=== PATIENT | female | born 1960 | race Hispanic/Latino ===

== ENCOUNTER 2017-11-29 18:15 | Emergency (ER) | payer MEDICAID ==
[2017-11-29 18:26] VITALS: BP 168/95; PULSE 64; RESP 18; TEMP 97.6; O2SAT 99
--- NOTE | 2017-11-29 18:57 | ED PDOC ---
HPI: Back Time Seen by Provider: 11/29/17 18:28 Chief Complaint (Nursing): Back Pain Chief Complaint (Provider): Back Pain History Per: Patient History/Exam Limitations: no limitations Onset/Duration Of Symptoms: Hrs (prior to arrival) Additional Complaint(s): Breana Leavitt is a 57 y/o female with history of TMJ, occipital neuralgia, cervical neuralgia, fibromyalgia, and lyme disease who presents with her usual neck, upper back and lower back pain. Patient reports she has not been taking any medication because nothing helps the pain. She states she has been seeing multiple specialists including pain management but has not been taking any pain medication. Patient reports nausea and vomiting which she states is normal when she gets this pain. PMD: None provided Past Medical History Reviewed: Historical Data, Nursing Documentation, Vital Signs Vital Signs: Last Vital Signs Temp 97.6 F 11/29/17 18:19 Pulse 64 11/29/17 18:19 Resp 18 11/29/17 18:19 BP 168/95 H 11/29/17 18:19 Pulse Ox 99 11/29/17 18:19 - Medical History PMH: Fibromyalgia Other PMH: Occipital neuralgia, cervical neuralgia, TMJ, Lyme Disease - Surgical History Surgical History: No Surg Hx - Family History Family History: States: Unknown Family Hx - Home Medications Home Medications: Ambulatory Orders Medication Instructions Recorded Lidocaine 5% [Lidoderm] 1 ea TD DAILY PRN #5 patch 11/29/17 - Allergies Allergies/Adverse Reactions: Allergies Allergy/AdvReac Type Severity Reaction Status Date / Time amoxicillin AdvReac PAIN Verified 11/29/17 18:38 Review of Systems Constitutional: Negative for: Fever Gastrointestinal: Positive for: Nausea, Vomiting Musculoskeletal: Positive for: Neck Pain, Back Pain (upper and lower) Physical Exam - Reviewed Nursing Documentation Reviewed: Yes Vital Signs Reviewed: Yes - Physical Exam Appears: Positive for: In Acute Distress (Painful distress, but distractable) Head Exam: Positive for: ATRAUMATIC, NORMOCEPHALIC Skin: Positive for: Normal Color, Warm, DRY Eye Exam: Positive for: EOMI, Normal appearance, PERRL Cardiovascular/Chest: Positive for: Regular Rate, Rhythm. Negative for: Murmur Respiratory: Positive for: Normal Breath Sounds. Negative for: Respiratory Distress Gastrointestinal/Abdominal: Positive for: Normal Exam, Soft. Negative for: Tenderness Back: Positive for: Normal Inspection, Other (tenderness to palpation entire back) Extremity: Positive for: Normal ROM. Negative for: Pedal Edema, Deformity Neurologic/Psych: Positive for: Alert, Oriented. Negative for: Motor/Sensory Deficits - Laboratory Results Result Diagrams: 11/29/17 19:02 11/29/17 19:02 - ECG O2 Sat by Pulse Oximetry: 99 (RA) Pulse Ox Interpretation: Normal Medical Decision Making Medical Decision Making: Time: 18:40 Initial Impression: Chronic pain --When asked who her PMD was patient was evasive and claimed that they were " far away" Initial Plan: --CMP --Drug screen --Urine dipstick --Flexeril 10 mg PO --Toradol 30 mg IM --Zofran 4 mg PO --Urinalysis ----- Scribe Attestation: Documented by Trey Briones, acting as a scribe for Constance Mitchell MD. Provider Scribe Attestation: All medical record entries made by the Scribe were at my direction and personally dictated by me. I have reviewed the chart and agree that the record accurately reflects my personal performance of the history, physical exam, medical decision making, and the department course for this patient. I have also personally directed, reviewed, and agree with the discharge instructions and disposition. Disposition - Clinical Impression Clinical Impression: Chronic pain - Disposition Referrals: [facility] [Outside] - 11/30/17 Disposition: Transfer of Care Disposition Time: 19:00 Condition: STABLE Additional Instructions: Return if not better in 3 days. Prescriptions: Lidocaine 5% [Lidoderm] 1 ea TD DAILY PRN #5 patch PRN Reason: Pain, Moderate (4-7) Instructions: Chronic Pain (DC) Patient Signed Over To: Jeevan Mcdaniels
--- NOTE | 2017-11-29 19:06 | ED PDOC ---
- Laboratory Results Result Diagrams: 11/29/17 19:02 11/29/17 19:02 Interpretation Of Abn Labs: cannabis - ECG O2 Sat by Pulse Oximetry: 99 (RA) Pulse Ox Interpretation: Normal - Progress ED Course And Treament: 1899: Stable. Took over care from Dr. Mitchell. Fu with chronic pain eval. Pending labs and drugs eval. 1937: Pt. made aware of chronic pain protocol in ER. Pt. tucker. AAOx3. Fu with pcp. Will give rx for lidocaine patch, with pt. feels might work. Has flexeril at home. Disposition Counseled Patient/Family Regarding: Studies Performed, Diagnosis - Clinical Impression Clinical Impression: Chronic pain - POA Present On Arrival: None - Disposition Referrals: [facility] [Outside] - 11/30/17 Disposition: Routine/Home Disposition Time: 19:39 Condition: STABLE Additional Instructions: Return if not better in 3 days. Prescriptions: Lidocaine 5% [Lidoderm] 1 ea TD DAILY PRN #5 patch PRN Reason: Pain, Moderate (4-7) Instructions: Chronic Pain (DC)
[2017-11-29 19:07] LABS: BASO % 0.5 % (0.0-2.0); EOS % 0.2 % (0.0-4.0); LYMPH # 0.8 K/uL (1.0-4.3); LYMPH % 10.8 % (20.0-40.0); MEAN CORPUSCULAR HEMOGLOBIN 33.9 pg (27.0-31.0); MEAN CORPUSCULAR HGB CONC 34.5 g/dL (33.0-37.0); MEAN PLATELET VOLUME 7.2 fl (7.2-11.7); MONO # 0.3 K/uL (0.0-0.8); MONO % 4.3 % (0.0-10.0); NEUT # 6.1 K/uL (1.8-7.0); NEUT % 84.2 % (50.0-75.0); RBC 4.43 Mil/uL (3.80-5.20); RED CELL DISTRIBUTION WIDTH 13.5 % (11.5-14.5); WHITE BLOOD COUNT 7.3 K/uL (4.8-10.8)
[2017-11-29 19:18] LABS: ALB/GLOB RATIO 1.6 (1.0-2.1); ALBUMIN 5.1 g/dL (3.5-5.0); ALT/SGPT 48 U/L (9-52); AST/SGOT 43 U/L (14-36); BLOOD UREA NITROGEN 24 mg/dl (7-17); CALCIUM 9.9 mg/dL (8.4-10.2); GFR NON-AFRICAN AMERICAN 57
[2017-11-29 19:25] LABS: SQUAMOUS EPITHIAL 2 /hpf (0-5); URINE BILIRUBIN NEGATIVE (NEGATIVE); URINE BLOOD MODERATE (NEGATIVE); URINE CLARITY CLOUDY (Clear); URINE COLOR YELLOW (YELLOW); URINE GLUCOSE (UA) NEG (Normal); URINE LEUKOCYTE ESTERASE TRACE Leu/uL (Negative); URINE PROTEIN 30 mg/dL (NEGATIVE); URINE UROBILINOGEN 0.2-1.0 mg/dL (0.2-1.0)
[2017-11-29 19:28] LABS: BARBITURATES, UR NEGATIVE (NEGATIVE); BENZODIAZEPINES, UR NEGATIVE (NEGATIVE); OPIATES, UR NEGATIVE (NEGATIVE); PHENCYCLIDINE, UR NEGATIVE (NEGATIVE)
[2017-11-29] MEDS ORDERED: Lidocaine 5% Patch TD STA (19:36)
[2017-11-29] MEDS ORDERED: Lidocaine 5% Patch TD ONE (19:41)
== END 2017-11-29 20:11 | disposition home or self-care (01) ==
LOC: H.ER 18:15
DX: G89.29 Other chronic pain (principal); M79.7 Fibromyalgia; Z88.0 Allergy status to penicillin
CPT/HCPCS: 80053; 80324; 80345; 80346; 80349; 80353; 80358; 80361; 81003; 83992; 85025; 96372; 99283; J1885